=== PATIENT | female | born 1985 | race Caucasian/White ===

== ENCOUNTER 2017-06-24 08:02 | Emergency (ER) | payer MEDICAID ==
[~2017-06-24] VITALS: Ht 154.9 cm; Wt 51.7 kg
[2017-06-24 08:06] VITALS: Ht 154.9 cm; Wt 51.7 kg
[2017-06-24 09:03] LABS: BASOPHIL % 0.5 % (0-2); PLATELET COUNT 262 x10^3mcL (130-400); RED CELL DISTRIBUTION WIDTH 14.5 % (11.5-14.5)
[2017-06-24 10:48] VITALS: BP 123/64
== END 2017-06-24 10:48 | disposition home or self-care (01) ==
LOC: ED 08:02
PROVIDERS: Emergency Medicine
DX: M79.674 Pain in right toe(s) (principal)
CPT/HCPCS: 36415; Q0092

== ENCOUNTER 2018-01-11 08:33 | Emergency (ER) | payer MEDICAID ==
[~2018-01-11] VITALS: Ht 154.9 cm; Wt 52.4 kg
[2018-01-11 08:44] VITALS: Ht 154.9 cm; Wt 52.4 kg
[2018-01-11 10:00] VITALS: BP 94/63
== END 2018-01-11 10:00 | disposition home or self-care (01) ==
LOC: ED 08:33
DX: J06.9 Acute upper respiratory infection, unspecified (principal); H92.09 Otalgia, unspecified ear

== ENCOUNTER 2018-06-07 10:23 | Emergency (ER) | payer MEDICAID ==
[~2018-06-07] VITALS: Ht 154.9 cm; Wt 51.3 kg
[2018-06-07 10:26] VITALS: Ht 154.9 cm; Wt 51.3 kg
[2018-06-07 11:28] VITALS: BP 99/54
== END 2018-06-07 11:28 | disposition home or self-care (01) ==
LOC: ED 10:23
DX: J06.9 Acute upper respiratory infection, unspecified (principal); N39.0 Urinary tract infection, site not specified; Z85.41 Personal history of malignant neoplasm of cervix uteri